=== PATIENT | female | born 1990 | race Caucasian/White ===

== ENCOUNTER 2022-11-25 17:22 | Emergency (ER) | payer OTHER ==
[~2022-11-25] VITALS: Ht 152.4 cm; Wt 113.6 kg
[2022-11-25 18:17] VITALS: BP 140/77
[2022-11-25] MEDS ORDERED: cyclobenzaprine 10mg tablet PO ONE (21:05)
[2022-11-25] MEDS ORDERED: ketorolac tromethamine 15mg/ml inj. IM ONE (21:05)
[2022-11-25] MEDS ORDERED: CYCL-1 PO (21:42)
[2022-11-25] MEDS ORDERED: IBUP-1984 PO (21:42)
== END 2022-11-25 21:56 | disposition home or self-care (01) ==
LOC: ER 17:23
DX: S46.911A Strain of unspecified muscle, fascia and tendon at shoulder and upper arm level, right arm, initial encounter (principal); V69.9XXA Occupant (driver) (passenger) of heavy transport vehicle injured in unspecified traffic accident, initial encounter; Y93.89 Activity, other specified; Y92.89 Other specified places as the place of occurrence of the external cause; Y99.8 Other external cause status
CPT/HCPCS: 73030; 96372; 99283; J1885; A4565